=== PATIENT | male | born 1995 | race Caucasian/White ===

== ENCOUNTER 2019-11-17 12:31 | Emergency (ER) | payer SELFPAY ==
--- NOTE | 2019-11-17 13:10 | EDM.PDOC ---
ED HPI GENERAL MEDICAL PROBLEM - General Chief Complaint: Cardiovascular Problem Stated Complaint: CHEST PAIN,SOB,HX OF HIGH IRON Time Seen by Provider: 11/17/19 13:05 Source of Information: Reports: Patient History Limitations: Reports: No Limitations - History of Present Illness INITIAL COMMENTS - FREE TEXT/NARRATIVE: 24-year-old male presents to the ED for evaluation of sudden onset of severe upper abdominal pain mostly epigastric that caused him to nearly pass out. 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. He states he feels that he has been well hydrated and the combines are air-conditioned. He states he developed sudden onset of severe epigastric abdominal pain that made him break out in a sweat with associated nausea but he did not vomit. States the pain is what nearly made him pass out suggesting vasovagal event. He sat the combine down and after he felt a little better contacted 1 of his coworkers who instructed him to come to the hospital for assessment. They were worried that he was having a heart attack. Present he has some mild discomfort in the epigastrium but feels much better than he d id. Pain episode came on a little over an hour ago. Onset: Today, Sudden Onset Date: 11/17/19 Onset Time: 11:45 Duration: Minutes:, Improving (And is pretty well gone compared to what it was like.) Location: Reports: Abdomen (Gastric area of the abdomen lower retrosternal discomfort rating along both costal margins anteriorly ) Quality: Reports: Ache, Sharp, Stabbing Severity: Severe Improves with: Reports: Other (Rated as a 9 out of 10.) Worsens with: Reports: None ( Better on its own.) Context: Reports: Other. Denies: Activity, Exercise, Lifting, Sick Contact, Trauma Associated Symptoms: Reports: No Other Symptoms (Cm he is occurrence), Chest Pain, Nausea/Vomiting, Shortness of Breath (The abdominal pain was worsened by deep breathing and he therefore had subjective shortness of breath), Weakness. Denies: Cough, cough w sputum (Lower retrosternal chest discomfort), Diaphoresis, Fever/Chills, Headaches, Loss of Appetite, Malaise, Rash, Seizure, Syncope Treatments [employer]: Reports: Other (see below) (None.) Other Treatments [employer]: 2 baby aspirin given to pt Upper Abdomen Pain Score (Numeric/FACES): 3 - Related Data Allergies Allergy/AdvReac Type Severity Reaction Status Date / Time No Known Allergies Allergy Verified 11/17/19 12:54 Past Medical History - Past Health History Medical/Surgical History: Denies Medical/Surgical History Hematologic History: Reports: Other (See Below) Other Hematologic History: iron level to high - Past Surgical History Musculoskeletal Surgical History: Reports: Arthroscopic Knee Social & Family History - Tobacco Use Smoking Status *Q: Current Every Day Smoker Years of Tobacco use: 4 Packs/Tins Daily: 0.5 - Caffeine Use Caffeine Use: Reports: Coffee, Soda - Recreational Drug Use Recreational Drug Use: No - Living Situation & Occupation Living situation: Reports: Single Occupation: Employed (Working for a local fields. Home is in [facility]) ED ROS GENERAL - Review of Systems Review Of Systems: See Below Constitutional: Reports: Decreased Appetite. Denies: Fever, Chills, Malaise, Weakness, Fatigue, Weight Loss HEENT: Reports: No Symptoms Respiratory: Reports: No Symptoms Cardiovascular: Reports: No Symptoms Endocrine: Reports: No Symptoms GI/Abdominal: Reports: Abdominal Pain (History of present illness.) : Reports: No Symptoms Musculoskeletal: Reports: No Symptoms Skin: Reports: No Symptoms Neurological: Reports: No Symptoms Psychiatric: Reports: No Symptoms Hematologic/Lymphatic: Reports: No Symptoms Immunologic: Reports: No Symptoms ED EXAM, GENERAL - Physical Exam Exam: See Below Exam Limited By: No Limitations General Appearance: Alert, WD/WN, No Apparent Distress, Other (He is jovial and laughing at this time. Temperature is 36.2 pulse 69 sinus respiratory is 20 BP 1 3989 wrist pulse ox is 98.) Eye Exam: Bilateral Eye: Normal Inspection, PERRL Throat/Mouth: Normal Inspection, Normal Lips, Normal Oropharynx Head: Atraumatic, Normocephalic Neck: Normal Inspection, Supple, Non-Tender, Full Range of Motion. No: Lymphadenopathy (L), Lymphadenopathy (R) Respiratory/Chest: No Respiratory Distress, Lungs Clear, Normal Breath Sounds, No Accessory Muscle Use, Chest Non-Tender Cardiovascular: Normal Peripheral Pulses, Regular Rate, Rhythm, No Edema, No Gallop, No Murmur, No Rub Peripheral Pulses: 3+: Carotid (L), Carotid (R), Posterior Tibial (L), Posterior Tibial (R), Dorsalis Pedis (L), Dorsalis Pedis (R) GI/Abdominal: Normal Bowel Sounds, Soft, No Organomegaly, No Mass, Pelvis Stable, Tender (Tenderness on deep palpation in the epigastrium. No guarding rebound), Other (Negative Hernandez sign). No: Guarding, Rigid ( identified), Rebound (Male) Exam: No Hernia Back Exam: Normal Inspection, Full Range of Motion. No: CVA Tenderness (L), CVA Tenderness (R) Extremities: Normal Inspection, Normal Range of Motion, Non-Tender, No Pedal Edema Neurological: Alert, Oriented, CN II-XII Intact, Normal Cognition Psychiatric: Normal Affect, Normal Mood Skin Exam: Warm, Dry, Intact, Normal Color, No Rash Course - Vital Signs Last Recorded V/S: Last Vital Signs Temp 36.2 C 11/17/19 13:02 Pulse 69 11/17/19 13:02 Resp 20 11/17/19 13:02 BP 139/89 11/17/19 13:02 Pulse Ox 98 11/17/19 13:02 - Orders/Labs/Meds Orders: Active Orders 24 hr Category Date Time Status EKG Documentation Completion [RC] STAT Care 11/17/19 13:06 Active Dextrose 5%-Lactated Ringers 1,000 ml Med 11/17/19 13:15 Active IV ASDIRECTED Medication Orders Dextrose/Lactated Ringer's (Dextrose 5%-Lactated Ringers) 1,000 mls @ 500 mls/hr IV ASDIRECTED JENI Last Admin: 11/17/19 13:25 Dose: 500 mls/hr Documented by: KAYLA Labs: Laboratory Tests 11/17/19 11/17/19 11/17/19 Range/Units 13:20 13:20 13:20 WBC 10.47 H (4.23-9.07) K/mm3 RBC 5.65 (4.63-6.08) M/mm3 Hgb 16.7 (13.7-17.5) gm/dl Hct 47.7 (40.1-51.0) % MCV 84.4 (79.0-92.2) fl MCH 29.6 (25.7-32.2) pg MCHC 35.0 (32.2-35.5) g/dl RDW Std Deviation 40.7 (35.1-43.9) fL Plt Count 275 (163-337) K/mm3 MPV 10.1 (9.4-12.3) fl Neut % (Auto) 75.8 H (34.0-67.9) % Lymph % (Auto) 15.7 L (21.8-53.1) % Ellsworth % (Auto) 6.7 (5.3-12.2) % Eos % (Auto) 1.3 (0.8-7.0) Baso % (Auto) 0.4 (0.1-1.2) % Neut # (Auto) 7.94 H (1.78-5.38) K/mm3 Lymph # (Auto) 1.64 (1.32-3.57) K/mm3 Ellsworth # (Auto) 0.70 (0.30-0.82) K/mm3 Eos # (Auto) 0.14 (0.04-0.54) K/mm3 Baso # (Auto) 0.04 (0.01-0.08) K/mm3 Sodium 140 (136-145) mEq/L Potassium 3.4 L (3.5-5.1) mEq/L Chloride 104 (98-107) mEq/L Carbon Dioxide 28 (21-32) mEq/L Anion Gap 11.4 (5-15) BUN 15 (7-18) mg/dL Creatinine 1.0 (0.7-1.3) mg/dL Est Cr Clr Drug Dosing 124.80 mL/min Estimated GFR (MDRD) > 60 (>60) mL/min BUN/Creatinine Ratio 15.0 (14-18) Glucose 123 H (74-106) mg/dL Calcium 9.2 (8.5-10.1) mg/dL Magnesium 1.9 (1.8-2.4) mg/dl Iron (65-175) ug/dL TIBC (100-400) ug/dL % Saturation (20-55) % Transferrin (202-364) mg/dL Ferritin 399 H (26-388) ng/ml Total Bilirubin 1.4 H (0.2-1.0) mg/dL AST 155 H (15-37) U/L ALT 120 H (16-63) U/L Alkaline Phosphatase 92 (46-116) U/L CK-MB (CK-2) (0-3.6) ng/ml Troponin I (0.00-0.056) ng/mL C-Reactive Protein 0.6 (<1.0) mg/dL Total Protein 7.4 (6.4-8.2) g/dl Albumin 4.0 (3.4-5.0) g/dl Globulin 3.4 gm/dL Albumin/Globulin Ratio 1.2 (1-2) Lipase 80 (73-393) U/L 11/17/19 11/17/19 Range/Units 13:20 13:20 WBC (4.23-9.07) K/mm3 RBC (4.63-6.08) M/mm3 Hgb (13.7-17.5) gm/dl Hct (40.1-51.0) % MCV (79.0-92.2) fl MCH (25.7-32.2) pg MCHC (32.2-35.5) g/dl RDW Std Deviation (35.1-43.9) fL Plt Count (163-337) K/mm3 MPV (9.4-12.3) fl Neut % (Auto) (34.0-67.9) % Lymph % (Auto) (21.8-53.1) % Ellsworth % (Auto) (5.3-12.2) % Eos % (Auto) (0.8-7.0) Baso % (Auto) (0.1-1.2) % Neut # (Auto) (1.78-5.38) K/mm3 Lymph # (Auto) (1.32-3.57) K/mm3 Ellsworth # (Auto) (0.30-0.82) K/mm3 Eos # (Auto) (0.04-0.54) K/mm3 Baso # (Auto) (0.01-0.08) K/mm3 Sodium (136-145) mEq/L Potassium (3.5-5.1) mEq/L Chloride (98-107) mEq/L Carbon Dioxide (21-32) mEq/L Anion Gap (5-15) BUN (7-18) mg/dL Creatinine (0.7-1.3) mg/dL Est Cr Clr Drug Dosing mL/min Estimated GFR (MDRD) (>60) mL/min BUN/Creatinine Ratio (14-18) Glucose (74-106) mg/dL Calcium (8.5-10.1) mg/dL Magnesium (1.8-2.4) mg/dl Iron 61 L (65-175) ug/dL TIBC 346 (100-400) ug/dL % Saturation 18 L (20-55) % Transferrin 277 (202-364) mg/dL Ferritin (26-388) ng/ml Total Bilirubin (0.2-1.0) mg/dL AST (15-37) U/L ALT (16-63) U/L Alkaline Phosphatase (46-116) U/L CK-MB (CK-2) 1.0 (0-3.6) ng/ml Troponin I < 0.017 (0.00-0.056) ng/mL C-Reactive Protein (<1.0) mg/dL Total Protein (6.4-8.2) g/dl Albumin (3.4-5.0) g/dl Globulin gm/dL Albumin/Globulin Ratio (1-2) Lipase (73-393) U/L Meds: Medications Generic Name Dose Route Start Last Admin Trade Name Freq PRN Reason Stop Dose Admin Dextrose/Lactated Ringer's 1,000 mls @ 500 mls/hr 11/17/19 13:15 11/17/19 13:25 Dextrose 5%-Lactated Ringers IV 500 mls/hr ASDIRECTED JENI Administration - Radiology Interpretation Free Text/Narrative:: 24-year-old male from [facility] who is currently working on a local farm combining resents to the ED with sudden onset of severe epigastric abdominal pain that made him nearly passed out. He was able to slowly combine down and stop it and therefore never really lost consciousness but had a near syncopal event secondary to pain in the abdomen. This pain is now much better than it was currently down to a 1 out of 10. He is laughing and jovial in the room. 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 He had no nausea or vomiting. He does have a history of hemochromatosis and was phlebotomized before coming to the [place] 6 months ago. Examination reveals normal vital signs heart was sinus lungs are clear abdomen is tender in the epigastrium only but not in the distribution of his gallbladder. He does not hardly drink any alcohol to be worrisome for pancreatitis. However hematochromatosis can cause pancreatitis. Suspect that he was experiencing more of a severe intestinal colic to have caused his severe pain and near syncope. I do not feel that it was cardiac in origin. He will have an ECG done and a chest x-ray and an x-ray of his abdomen. Routine labs including a serum ferritin and total iron binding capacity and iron levels will also be obtained as well as a serum lipase. IV is D5 LR at 500 mils an hour - Re-Assessments/Exams Free Text/Narrative Re-Assessment/Exam: 11/17/19 13:39 1 view chest x-ray is within normal limits showing no pneumothorax or pleural effusions. Cardiac silhouette is normal. KUB reveals some slightly increased stool throughout the hepatic flexure and across the transverse colon with a lot of air distending the bowel. No significant constipation no bowel obstruction 11/17/19 14:34 White blood cell count is slightly elevated at 10.47. There is 76% neutrophils on the auto differential. Hemoglobin is 16.7 with hematocrit of 47.7 suggesting mild hemoconcentration. Platelet count is 275,000. Sodium 140 with a potassium of 3.4. Chloride 104 with a bicarb of 28. Anion gap is 11.4. BUN is 15 with a creatinine of 1.0. Glucose is 123. Calcium is 9.2 magnesium is 1.9. Total iron is actually on the low side at 61 and total iron binding capacity is 346 which is in the normal range. Percent saturation is 18 which is on the low side transferrin is 277 serum ferritin is still mildly high at 399. Normal on our lab is up to 388. Total bilirubin is 1.4. AST is 155 ALT is 120. Alk phosphatase is 92 CK-MB fraction 1.0 with a troponin I of less than 0.017 C-reactive protein is 0.6 total protein 7.4 lipase is 80 all normal 11/17/19 14:40 feeling fine. He has had 600 mils of IV fluid and no further abdominal pain. He states he is been going hard, binding for the last week or more with 24 5 hours of sleep. This is likely contributed to mild constipation. I will send him home with Sindhu to take 5 ounces later tonight with 5 ounces of juice of choice to provide bowel cleanse. Reassured that his iron levels are near in the normal range and no signs of hemochromatosis at this time other than his very slightly elevated ferritin. Departure - Departure Time of Disposition: 14:41 Disposition: Home, Self-Care 01 Reason for Transfer *Q: Other Condition: Good Clinical Impression: Constipation by delayed colonic transit, Vasovagal near-syncope Abdominal pain Qualifiers: Abdominal location: epigastric Qualified Code(s): R10.13 - Epigastric pain Instructions: Abdominal Pain, Adult, [id number], Near-Syncope Referrals: PCP,None [Primary Care Provider] - Forms: ED Department Discharge Additional Instructions: Evaluation in the emergency room today in regards to acute onset of severe epigastric upper abdominal pain that nearly made you pass out. It appears that this was secondary to severe intestinal colic or cramps caused by constipation with increased stool in the transverse colon which runs across your upper abdomen from your liver to your spleen. This was identified on x-ray. Test done on your chest heart etc. were all completely normal. Your serum iron level is actually on the low side and your serum ferritin level is just barely above n ormal. Therefore as far as mild hemochromatosis or iron retention syndrome you will not need any further testing for at least a year. Treatment is to take 5 ounces of magnesium citrate with 5 ounces of juice of choice tonight when she get done work it will take an hour to to work and your bowels will move 3 or 4 times and provide clean cleanout of the colon and prevent further bouts of abdominal pain. Note eating a large meal may make the abdominal pain worse again before cleanout occurs. You are cleared to return to work in full capacity at this time with no restrictions Sepsis Event Note (ED) - Focused Exam Vital Signs: Vital Signs Temp Pulse Resp BP Pulse Ox 11/17/19 13:02 36.2 C 69 20 139/89 98 - My Orders Last 24 Hours: My Active Orders 11/17/19 13:06 EKG Documentation Completion [RC] STAT 11/17/19 13:15 Dextrose 5%-Lactated Ringers 1,000 ml IV ASDIRECTED - Assessment/Plan Last 24 Hours: My Active Orders 11/17/19 13:06 EKG Documentation Completion [RC] STAT 11/17/19 13:15 Dextrose 5%-Lactated Ringers 1,000 ml IV ASDIRECTED
[2019-11-17] MEDS ORDERED: Dextrose 5%-Lactated Ringers 1,000 ML IV SCH (13:15)
--- NOTE | 2019-11-17 13:28 | CR ---
Abdomen: Supine view of the abdomen was obtained. Comparison: No previous study. Bowel gas pattern is normal. Bony structures are unremarkable. No abnormal calcifications or soft tissue abnormality is seen. Impression: 1. Nothing acute is seen on supine abdominal x-ray. Diagnostic code #1 This report was dictated in MDT
--- NOTE | 2019-11-17 13:29 | CR ---
Chest: PA view of the chest was obtained. Comparison: No previous chest imaging. Heart size and mediastinum are normal. Lungs are clear with no acute parenchymal change. Bony structures are unremarkable. Impression: 1. Nothing acute is seen on PA chest x-ray. Diagnostic code #1 This report was dictated in MDT
[2019-11-17] MEDS ORDERED: Magnesium Citrate Solution 296 ML Bottle PO ONE (14:44)
== END 2019-11-17 15:23 | disposition home or self-care (01) ==
LOC: JD.ED 12:31
DX: K59.01 Slow transit constipation (principal); F17.210 Nicotine dependence, cigarettes, uncomplicated; R10.13 Epigastric pain; R55 Syncope and collapse
CPT/HCPCS: 36415; 71045; 74018; 80053; 82553; 82728; 83540; 83690; 83735; 84466; 84484; 85025; 86140; 93005; 96360; 96361; 99284; A9270; J7121; 93010